=== PATIENT | male | born 1965 | race Caucasian/White ===

== ENCOUNTER 2022-06-05 07:02 | Emergency (ER) | payer OTHER, SELFPAY ==
--- NOTE | ~2022-06-05 | XR_ITS ---
EXAMINATION: XR SHOULDER, RIGHT CLINICAL INFORMATION: Right shoulder injury COMPARISON: None TECHNIQUE: 3 views of the right shoulder. FINDINGS: There is an anterior dislocation of the right shoulder. Small bony density is seen adjacent to the greater trochanter and may be related to calcific tendinitis or small fracture fragment. Hill-Sachs deformity is present. Coracoclavicular space is not widened. XR/XR shoulder RT min 2V IMPRESSION: Anterior dislocation of the right shoulder.
--- NOTE | ~2022-06-05 | XR_ITS ---
EXAMINATION: XR SHOULDER, RIGHT CLINICAL INFORMATION: Post reduction COMPARISON: Earlier on same day TECHNIQUE: Two views of the right shoulder. FINDINGS: There has been reduction of the previously noted anterior dislocation of the right shoulder. No definite fracture fragment is identified on this study were as a small bony density seen overlying the region of the greater tuberosity. Hill-Sachs deformity present. Acromioclavicular joint appears unremarkable. No widening of the coracoclavicular space. XR/XR shoulder RT min 2V IMPRESSION: Reduction of right shoulder dislocation.
[2022-06-05 07:05] VITALS: BP 142/88; PULSE 74; RESP 18; TEMP 37.1; O2SAT 95; BMI 26.6
--- NOTE | 2022-06-05 07:39 | ED.EXTPRO ---
HPI - Extremity Problem General Chief complaint: Extremity Injury, Upper Stated complaint: dislocated shoulder Time Seen by Provider: 06/05/22 07:38 Source: patient Mode of arrival: ambulatory Limitations: no limitations History of Present Illness HPI Narrative: 56-year-old male came in with right shoulder pain. Patient tripped and fell this morning, patient was going down stairs missed a step and fell 3 steps of stairs landed on his right outstretched arm, felt a pop, patient after that had a severe sudden right shoulder pain and cannot move his shoulder. Patient declined head injury, no LOC. Related Data Allergies Allergy/AdvReac Type Severity Reaction Status Date / Time No Known Allergies Allergy Verified 06/05/22 07:04 Review of Systems Review of Systems: All other systems are reviewed and are negative Constitutional: Reports as per HPI and Reports no additional constitutional complaints Eyes: Reports as per HPI and Reports no additional eye complaints Reports system reviewed and no additional complaints, except as documented Cardiovascular: Reports as per HPI and Reports no additional cardiovascular complaints Respiratory: Reports as per HPI and Reports no additional respiratory complaints Gastrointestinal: Reports as per HPI and Reports no additional gastrointestinal complaints Genitourinary: Reports no additional female genitourinary complaints Musculoskeletal: Reports no additional musculoskeletal complaints Skin/Breast: Reports system reviewed and no additional complaints, except as docu Psychiatric: Reports no additional psychiatric complaints Endocrine: Reports no additional endocrine complaints Hematologic/Lymphatic: Reports no additional hematologic/lymphatic complaints Allergic/Immunologic: Reports no additional allergic/immunologic complaints Reports system reviewed and no additional complaints, except as documented and Reports Abnormal speech present PMFSH Social History Social History Advance Directives: Yes Advance Directives Information Provided: Yes Advance Directives on File: No Physical Exam Vital Signs: Vital Signs: Last Vital Signs Temp 98.8 F 06/05/22 07:05 Pulse 73 06/05/22 08:48 Resp 12 06/05/22 08:48 BP 123/81 06/05/22 08:47 Pulse Ox 98 06/05/22 08:48 O2 Del Method 06/05/22 07:05 Oxygen Flow Rate 1 06/05/22 08:48 BMI result Body Mass Index 26.6 Vital signs have been reviewed as appeared to be correct. Blood pressure normal. Heart rate normal. Respiration rate normal. Temperature normal. Oxygen saturation normal. Appearance: Alert. Oriented X3. No acute distress. Head: Normal external exam. Normocephalic. Atraumatic. No Mancia signs noted. No raccoon eyes noted Eyes: PERRLA. EOMI. Conjunctiva and sclera normal. Eyelids normal. ENT: TM's Normal. Pharynx normal. Uvula midline. Moist mucous membranes. No trismus noted. No drooling noted. No muffled voice noted. Neck: Normal inspection. Neck supple. FROM. No adenopathy. Thyroid Normal. No meningeal signs. No neck mass noted. CVS: Normal heart rate and rhythm. Heart sound normal. No murmurs noted. Pulses normal throughout. Respiratory: No respiratory distress. Painless inspiration. Breath sounds normal. No wheezes/rales/rhonchi noted. Chest nontender. No accessory muscle usage noted or decreased air movement noted. Abdomen: Soft and nontender. Bowel sounds normal in all 4 quadrants. No distention noted. No organomegaly noted. No visible injury noted. Back: No CVA tenderness. Full range of motion noted. Skin: Skin warm and dry. Normal skin color. Normal skin turgor. No rashes/lesions/lacerations noted. Extremities: Right shoulder held in adduction position, humeral head is felt anteriorly with anterior fullness. Neuro: Oriented X 3. Cranial nerve exam: II-XII are grossly intact No motor deficit. No sensory deficit. Reflexes normal. Course Course Course Narrative: 56-year-old male who sustained a right shoulder dislocation after fall down, shoulder was reduced by conscious sedation in the ED, please review procedure note. Post reduction x-ray is satisfactory. MDM - Extremity (Nontraumatic) Imaging Data Right shoulder x-ray: Attestation: I personally reviewed and interpreted this imaging study as follows: Radiologist's impression: There is an anterior dislocation of the right shoulder. Small bony density is seen adjacent to the greater trochanter and may be related to calcific tendinitis or small fracture fragment. Hill-Sachs deformity is present. Coracoclavicular space is not widened. Post reduction right shoulder x-ray: Attestation: I personally reviewed and interpreted this imaging study as follows: Radiologist's impression: There has been reduction of the previously noted anterior dislocation of the right shoulder. No definite fracture fragment is identified on this study were as a small bony density seen overlying the region of the greater tuberosity. Hill-Sachs deformity present. Acromioclavicular joint appears unremarkable. No widening of the coracoclavicular space. Procedures Orthopedic Joint Reduction Joint #1: Time Out Performed: Yes Side: right Joint Reduction Location: shoulder Analgesia: procedural sedation Shoulder Technique Used (if applicable): traction/counter-traction Technique used: traction/counter-traction Post-reduction neuro exam: intact Post-reduction vascular: intact Post Reduction X-Ray Obtained: Yes Post Reduction X-Ray Results: reduced Splint Applied: Yes Patient Tolerated Procedure: well Procedural Sedation Indication: fracture/dislocation reduction ASA Class: I Mallampati Class: I Preparation: cafeteria monitor applied, pulse oximeter, supplemental O2 applied, suction/airway equipment at bedside and IV secured (100mg of propofol IV was used.) Patient Tolerated Procedure: well Complications: none Critical Care Time Critical Care Time Critical Care Time: Yes Total Critical Care Time: 60 Attestation: I spent 60 minutes providing critical care service to the patient, this including time spent at the bedside to evaluate the patient, reassess the patient, monitoring vital signs, review labs, and radiographic studies, counseling the patient/family, discussing the case with consultants, disposition the patient. Discharge Plan Discharge Clinical Impression: Dislocation of shoulder region Patient Disposition: Home, Self-Care Instructions: Shoulder Dislocation (ED) Additional Instructions: Keep shoulder immobilization, take ibuprofen 200 mg tablet every 6 hours if needed for soreness or pain ([id number]), avoid strenuous activity or lifting right arm above your head, follow-up with orthopedic. Referrals: Mendel Torres MD [Physician] -
[2022-06-05 08:43] VITALS: BP 136/81; PULSE 84; RESP 13; O2SAT 100
[2022-06-05] MEDS: propofoL 200 MG/20 ML VIAL 100 MG IVPUSH (08:43)
[2022-06-05 08:44] VITALS: BP 136/81; PULSE 77; RESP 19; O2SAT 99
[2022-06-05 08:47] VITALS: BP 123/81; PULSE 80; RESP 13; O2SAT 99
[2022-06-05 08:48] VITALS: PULSE 73; RESP 12; O2SAT 98
[2022-06-05 10:03] VITALS: BP 131/82; PULSE 78; RESP 18; O2SAT 98
--- NOTE | 2022-06-05 10:04 | PC.NURSE ---
alert, speech clear, steady gait, nad, very little pain, nad, sling in place
== END 2022-06-05 10:05 | disposition home or self-care (01) ==
PROVIDERS: Emergency Provider Emergency Medicine
DX: S43.084A Other dislocation of right shoulder joint, initial encounter (principal); W10.8XXA Fall (on) (from) other stairs and steps, initial encounter; Y93.9 Activity, unspecified; Y92.9 Unspecified place or not applicable; Y99.9 Unspecified external cause status
CPT/HCPCS: 23655; 73030; 99156; 99282; 99285

== ENCOUNTER → 2022-06-28 13:37 | Outpatient (BNVA) | payer OTHER, SELFPAY | PROVIDERS: Visit Provider Physician Assistant | DX: S43.004A Unspecified dislocation of right shoulder joint, initial encounter (principal) | CPT/HCPCS: 99202 ==

== ENCOUNTER → 2022-07-28 13:02 | Outpatient (BNVA) | payer OTHER, SELFPAY | PROVIDERS: Visit Provider Physician Assistant | DX: S43.004D Unspecified dislocation of right shoulder joint, subsequent encounter (principal) | CPT/HCPCS: 20610; 99212; J1040 ==

== ENCOUNTER 2022-08-05 13:47 | Outpatient (REF) | payer OTHER, SELFPAY ==
--- NOTE | ~2022-08-05 | MR_ITS ---
EXAMINATION: MR SHOULDER WITHOUT CONTRAST, RIGHT CLINICAL INFORMATION: Shoulder pain COMPARISON: None TECHNIQUE: MRI of the shoulder without contrast was performed on a high-field scanner. FINDINGS: ROTATOR CUFF: Mild supraspinatus tendinosis. Full-thickness tear in the anterior fibers measuring 1.7 x 3.3 cm (AP x ML). There is mild bursal surface fraying in the mid/posterior fibers. Bursitis, teres minor is intact. Full-thickness tear of the subscapularis tendon, tendon retraction approximately 2.4 cm. No muscle atrophy or fatty infiltration. BICEPS: Biceps tendon is medially displaced. Mild biceps tendinosis. CORACOACROMIAL ARCH: The undersurface of the acromion is curved with no subacromial spur. Mild acromioclavicular arthritis. Small fluid in the subacromial subdeltoid space. LABRUM/CAPSULE: Free edge fraying of the superior labrum. There is a tear of the anteroinferior labrum. Degenerative fraying/tear of the inferior labrum. Edema in the inferior capsule. GLENOHUMERAL JOINT/MARROW: Greater tuberosity degenerative cyst/edema. Mild glenohumeral joint arthritis. Small effusion. MR/MR shoulder RT wo con IMPRESSION: 1. Mild supraspinatus tendinosis. 1.7 x 3.3 cm full-thickness tear anteriorly. Mild bursal surface fraying in the mid/posterior fibers. 2. Subscapularis tendon full-thickness tear. 3. Mild biceps tendinosis. Medially displaced biceps tendon. 4. Anteroinferior labral tear. Degenerative fraying/tear of the inferior labrum. Superior labral free edge fraying. 5. Mild glenohumeral joint arthritis. Small effusion. 6. Mild acromioclavicular arthritis. Mild subacromial subdeltoid bursitis.
== END 2022-08-05 13:48 | disposition home or self-care (01) ==
LOC: HO.MRI 13:47
PROVIDERS: Visit Provider Physician Assistant
DX: S43.004A Unspecified dislocation of right shoulder joint, initial encounter (principal)
CPT/HCPCS: 73221

== ENCOUNTER 2022-08-06 10:00 | Outpatient (RCR) | payer OTHER, SELFPAY ==
--- NOTE | 2022-07-13 16:17 | MHC.PT.EP ---
[facility] [place] Office [place] Office [place] Office [address] Mark Sparks [address] [phone] F: [phone] F: [phone] F: [phone] F: [phone] Physical Therapy Plan of Care Date of Evaluation: Date of Surgery: NA Diagnosis: DISLOCATION R SHLDER Assessment: Pt IS 57 YO RHD M REFERRED TO PT FROM [facility]THO ([facility]) S/P R SHLDER DISLOCATION 06/05/22 (FALL ON OUTSTRETCHED ARM). RELOCATED IN ER, XRAY +HILL SACHS LESION TO [place] (GREATER TUBERCLE..ATTACHMENT OF SUPRASPINATUS AND INFRASPINATUS). SAW ORTHO AND REFERRED TO PT (OF NOTE, DURING EVAL Pt RECEIVED CALL FROM ORTHO FOR INJECTION/MRI). PRESENTS WITH LIMITED ROM R SHLDER AND LIMITED UE STRENGTH R. WITH PAIN AND DIFFICULTY SLEEPING. 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 Pt WITH +MODIFIED IMPINGEMENT SIGN, AND DIFFICULTY MAINTAINING ABD WITH DROP ARM TEST. LIMITED IR/LIFT OFF. Pt WITH CLICK WITH CERTAIN MOVEMENTS OF R SHOULDER (ABLE TO GET AROUND THE CLICK WITH EASED RANGE)..FEASIBLY MAY HAVE A LABRAL TEAR OR A TORN RC MM. AN MRI SEEMS APPROPRIATE. Pt SHOULD BENEFIT FROM PT TO ADDRESS THESE ISSUES Frequency and Duration: The patient will be seen 2X/WK X 8 WKS Short Term Goals: 1. INCREASED POSTURE AWARENESS AND AWARENESS SHLDER CARE 2. 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 I HEP WITH DC EX PLAN 2. INCREASED ROM R SHLDER 10-20 DEGREES T/O 3. INCREASED R SHLDER STRENGTH 1/2-1 MM GRADE 4. DECREASED R SHLDER PAIN AT LEAST 50% WITH ADLS 5. IMPROVED SPADI (SOC=76/130) Treatment Plan: Modalities to reduce pain, spasms and effusion. Manual therapy to restore motion and function. Therapeutic exercise to improve strength and flexibility. Neuromuscular re-education for posture and balance. Therapeutic activities to return to functional activities of daily living. Electronically signed by: LULI PEREIRA PT Please sign and return to therapist. Thank you for your referral.
--- NOTE | 2022-08-10 11:55 | MHC.PT.DC ---
[facility] [place] Office [place] Office [place] Office [address] Mark Sparks [address] [phone] F: [phone] F: [phone] F: [phone] F: [phone] Physical Therapy Discharge Report Diagnosis: DISLOCATION R SHLDER Date of Surgery: NA Date of Evaluation: 07/13/22 Date of Discharge: 08/10/22 Treatments to Date: 8 Cancellations to Date: No Shows to Date: Discharge Status: Patient Elected to Stop Discharge Summary: Pt HAD MRI (+LABRAL TEAR AND RC TEARS) SAW ORTHO. TO HAVE SURGERY. WILL CONTINUE PO Electronically signed by: LULI PEREIRA PT Please sign and return to therapist. Thank you for your referral.
== END 2022-08-10 11:56 | disposition home or self-care (01) ==
LOC: HO.PT 10:00
PROVIDERS: Visit Provider Physician Assistant
DX: M24.411 Recurrent dislocation, right shoulder (principal)
CPT/HCPCS: 97014; 97110; 97140; 97162; 97535

== ENCOUNTER → 2022-08-09 13:32 | Outpatient (BNVA) | payer OTHER, SELFPAY | PROVIDERS: Visit Provider Physician Assistant | DX: M75.101 Unspecified rotator cuff tear or rupture of right shoulder, not specified as traumatic (principal); Z46.89 Encounter for fitting and adjustment of other specified devices | CPT/HCPCS: 99212 ==

== ENCOUNTER 2022-08-31 06:47 | Day surgery (SDC) | payer OTHER, SELFPAY ==
[2022-08-24 09:20] VITALS: BMI 25.8
--- NOTE | 2022-08-30 08:29 | P.CONAN_ITS ---
Documented by User: Joy Arroyo NP 08/30/22 08:30 HPI - Anesthesia Eval Consult details Narrative: 57yo M for Right Arthroscopic Rotator Cuff Repair [facility] Active Problems Active Problems: All Active Problems (Updated 08/24/22 @ 09:16 by Mariann Diaz, RN) Recurrent dislocation, right shoulder (Acute) Dislocation of right shoulder joint (Acute) Rotator cuff tear, right (Acute) Past Medical History Medical History (Updated 08/24/22 @ 09:16 by Mariann Diaz, RN) No significant past medical history Surgical History Surgical History (Updated 08/24/22 @ 09:16 by Mariann Diaz, RN) History of dental surgery History of hernia surgery Hx of knee surgery Social History Social History Are you a primary health care assistant to a significant other at home: No Do you presently have visiting nurse or other home services: No Have you been hit, kicked, punched, or otherwise hurt by someone within the past year? 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 Allergies Allergy/AdvReac Type Severity Reaction Status Date / Time No Known Allergies Allergy Verified 08/31/22 07:00 Home Medications Medication Instructions Recorded Confirmed Last Taken Type ibuprofen 200 mg tablet 400 mg PO Q8H PRN Pain 06/28/22 08/23/22 Unknown History Exam Exam Date and Time: August 30, 2022 0829 Height,Weight and Vital Signs: Height 5 ft 9 in Weight 79.379 kg Assessment and Plan Assessment Anesthesia Assessment: Chart Reviewed Documented by User: Karley Wilson MD 08/31/22 07:15 [facility] Past Medical History Medical History (Updated 08/24/22 @ 09:16 by Mariann Diaz, RN) No significant past medical history Family History Family history of problems with anesthesia: No Surgical History Surgical History (Updated 08/24/22 @ 09:16 by Mariann Diaz, RN) History of dental surgery History of hernia surgery Hx of knee surgery History of Problems with Anesthesia: No Social History Social History Are you a primary health care assistant to a significant other at home: No Do you presently have visiting nurse or other home services: No Have you been hit, kicked, punched, or otherwise hurt by someone within the past year? 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 Allergies Allergy/AdvReac Type Severity Reaction Status Date / Time No Known Allergies Allergy Verified 08/31/22 07:00 Home Medications Medication Instructions Recorded Confirmed Last Taken Type ibuprofen 200 mg tablet 400 mg PO Q8H PRN Pain 06/28/22 08/23/22 Unknown History Exam Airway Mallampati Class: II (Edentulous, recently had them all removed) TM Dist: >3cm Neck ROM: Full Heart: rrr Lungs: cta Assessment and Plan Assessment Anesthesia Assessment: Anesthesia Plan Discussed Final Anesthetic Review Family History of Problems with Anesthesia: No History of Problems with Anesthesia: No NPO: Yes ASA Class: II Final Preanesthetic Review: No Changes in Pt Med Stat, Meds/Allgs Chart Reviewed and Consent Obtained/Reviewed Patient Risk: Intermediate Procedure Risk: Intermediate Anesthetic Plan Anesthetic Plan: GA and Neuraxial Block: (Post op pain right brachial plexus block) Disposition: Standard PACU
[2022-08-31] VITALS (10 sets, daily range): BP systolic 111–128; BP diastolic 70–93; PULSE 75–85; RESP 15–21; TEMP 36.2–36.7; O2SAT 93–98
[2022-08-31] MEDS: Lactated Ringers 1,000 ML 100 ML IVCONT (07:31)
--- NOTE | 2022-08-31 11:07 | PM.OP ---
Brief Operative Note Date of Service: 08/31/22 Pre-op diagnosis: Right RTC tear Post-op diagnosis: same Procedure: Right rtc repair Implants: Borges and nephew suture anchor x 5 Surgeon: Mendel Torres MD Anesthesia: GETA and regional Was an Hoisting Pile Driving Engineer used for this Procedure?: Yes Hoisting Pile Driving Engineer: Evens Arnold Estimated blood loss (mL): 20 IV fluids (mL): 1,000 Pathology: none sent Condition: stable Disposition: PACU
--- NOTE | 2022-08-31 11:08 | W.PM.OPN ---
Operative Note Operative Note Date of Service: 08/31/22 Narrative: Brief Operative Note Date of Service: 08/31/22 Pre-op diagnosis: Right RTC tear Post-op diagnosis: same Procedure: Right rtc repair ( subscapularis and supraspinatus) Implants: Borges and nephew suture anchor x 5 Surgeon: Mendel Torres MD Anesthesia: GETA and regional Was an Benefits Consultant used for this Procedure?: Yes Benefits Consultant: Evens Arnold Estimated blood loss (mL): 20 IV fluids (mL): 1,000 Pathology: none sent Condition: stable Disposition: PACU Procedure in detail: Patient was brought to the operating room and placed the the beach chair position. All bony prominences were well padded and the limb was prepped and draped in standard sterile fashion. A time out was called to identify proper site, proper procedure and proper surgeon. IV antibiotics per weight were administered. I began by making a posterolateral stab incision with a 15 blade. A blunt trochar was placed into the glenohumeral joint and I insufflated the joint with saline and a 30 degree arthroscope was placed. I established an outside- in anterior portal just distal to the biceps tendon. I then began my inspection of the glenohumeral joint. There was intact biceps with Type 1. I debrided the superior labrum and examined the subscapularis. The subscap was toprn and scarred invoilving 80% of superior attachment. I debrided salas and was able to reattach to the insertion using 6 looped sutures and 2 anchors. The bed was debrided down to bleeding bone and affixed in internal rotation. It was stable but tight. There wasa large undersurface anterior supraspiantus tear. I then removed the trochar and entered the subacromial space. A direct lateral portal was then established and I performed a bursectomy. The cuff was then examined. There was a full thickness tear of the supraspinatus. THis was an irregular tear with some tendon attached to the bare area. The tear was mobile but retrated. I then placed two medial row double loaded anchors and then brought the suture tape and sutures through the medial cuff. Because it was a partially intrasubstance/insertional irregular tear I had to bring the cuff to the medial aspect of the bare area. I debrided the bare area down to bleeding bone and, using a cross bridge configuration, brought four limbs to each of two lateral 5.0 anchors. This re-approximated the cuff anatomy near anatomically. I then performed a 5 mm subacromial decompression. Once I was satisfied with the repair final images were captured and I removed all instrumentation. Portals were closed with nylon. Patient was placed in an abduction sling, extubated and brought to the recovery room in stable condition. There were no known complications.
[2022-08-31] MEDS: oxyCODONE HCl Immed Release 5 MG TABLET 10 MG PO (11:56)
[2022-08-31] MEDS: fentaNYL citrate/PF 100 MCG/2 ML VIAL 50 MCG IVPUSH (12:05)
== END 2022-08-31 13:30 | disposition home or self-care (01) ==
PROVIDERS: Visit Provider Orthopaedic Surgery
PROC: (CPT 29827; principal; 2022-08-31 08:40)
DX: M75.101 Unspecified rotator cuff tear or rupture of right shoulder, not specified as traumatic (principal)
CPT/HCPCS: 29827; 29826; C1713; J0171; J0690; J1100; J2250; J2405; J2795; J3010

== ENCOUNTER 2022-09-06 07:20 | Outpatient (RCR) | payer OTHER, SELFPAY | END 2022-09-27 12:52 | disposition home or self-care (01) | LOC: HO.PT 07:20 | PROVIDERS: Visit Provider Physician Assistant | DX: M75.101 Unspecified rotator cuff tear or rupture of right shoulder, not specified as traumatic (principal) | CPT/HCPCS: 97161 ==

== ENCOUNTER → 2022-10-05 13:06 | Outpatient (BNVA) | payer OTHER, SELFPAY | PROVIDERS: Visit Provider Physician Assistant | DX: M75.101 Unspecified rotator cuff tear or rupture of right shoulder, not specified as traumatic (principal) ==

== ENCOUNTER → 2022-11-16 13:22 | Outpatient (BNVA) | payer OTHER, SELFPAY | PROVIDERS: Visit Provider Physician Assistant | DX: Z13.89 Encounter for screening for other disorder (principal) ==

== ENCOUNTER 2022-11-23 09:00 | Outpatient (RCR) | payer OTHER, SELFPAY ==
--- NOTE | 2022-09-14 16:36 | MHC.PT.EP ---
[facility] [place] Office [place] Office [place] Office [address] Mark Sparks [address] [phone] F: [phone] F: [phone] F: [phone] F: [phone] Physical Therapy Plan of Care Date of Evaluation: Date of Surgery: 08/31/22 Diagnosis: R ROTATOR CUFF TEAR Assessment: Pt IS 57 YO M REFERRED TO PT FROM ORTHO ([facility]) WITH R ROTATOR CUFF TEAR. PER OP REPORT. INTACT BICEPS. DEBRIDED SUPERIOR LABRUM, DEBRIDED SUBSCAP AND REATTACHED TO THE INSERTION USING 6 LOOPED SUTURES AND 2 ANCHORS. REPAIRED LG UNDERSURFACE SUPRASPINATUS TEAR AND 5 MM SUBACROMIAL DECOMPRESSION AND BURSECTOMY SUTURES REMOVED 09/06/22. TO WEAR SLING UNTIL 6 WKS Pt WAS SEEN IN PT FROM 07/13/22-08/06/22 WITHOUT SIGNIF RELIEF FROM R SHLDER DISLOCATION WITH HILL SACH'S LESION. MRI + LABRAL TEAR AND RC TEARS (SUPRSPINATUS AND SUBSCAPULARIS) Pt IS 2 WEEKS PO TODAY. PRESENTS WITH LIMITED ROM AND STRENGTH R SHLDER. PAIN. SHOULD BENEFIT FROM PT TO ADDRESS THESE ISSUES Frequency and Duration: The patient will be seen 2X/WK X 10 WKS Short Term Goals: 1. INCREASED AWARENESS POSTURE/SHLDER CARE 2. INCREASED ROM R SHLDER FLEX T0 120, ABD 90, ER 45 3. IMPROVED SLEEP Mcc Goals: 1. INCREASED R UE STRENGTH TO AT LEAST 4/5 FOR FUNCTIONAL USE 2. I HEP WITH DC EX PLAN 3. INCREASED R SHLDER ROM FLEX TO 160, ABD TO 100, ER TO 60 Treatment Plan: Modalities to reduce pain, spasms and effusion. Manual therapy to restore motion and function. Therapeutic exercise to improve strength and flexibility. Neuromuscular re-education for posture and balance. Therapeutic activities to return to functional activities of daily living. Electronically signed by: LULI PEREIRA PT Please sign and return to therapist. Thank you for your referral.
--- NOTE | 2023-01-10 12:21 | MHC.PT.DC ---
[facility] [place] Office [place] Office [place] Office [address] Mark Sparks [address] [facility] [phone] F: [phone] F: [phone] F: [phone] F: [phone] Physical Therapy Discharge Report Diagnosis: S/P R ROTATOR CUFF SURGERY Date of Surgery: 08/31/22 Date of Evaluation: 09/14/22 Date of Discharge: 01/10/23 Treatments to Date: 17 Cancellations to Date: No Shows to Date: Discharge Status: Achieved Goals Improved Function Independent with HEP Discharge Summary: GOOD PERF EXS WITHOUT C/O SHOULDER PAIN, HAS MET PT GOALS Electronically signed by: LULI PEREIRA PT Please sign and return to therapist. Thank you for your referral.
== END 2023-01-10 12:22 | disposition home or self-care (01) ==
LOC: HO.PT 09:00
PROVIDERS: Visit Provider Physician Assistant
DX: M24.411 Recurrent dislocation, right shoulder (principal)
CPT/HCPCS: 97110; 97140; 97162; 97530; 97535